=== PATIENT | male | born 1980 | race Caucasian/White ===

== ENCOUNTER 2022-07-25 06:39 | Day surgery (SDC) | payer BC, SELFPAY ==
[2022-07-25] VITALS (13 sets, daily range): BP systolic 118–131; BP diastolic 68–87; PULSE 54–95; RESP 16; TEMP 36.3–36.6; O2SAT 91–97; BMI 31.4
[2022-07-25] MEDS: SODIUM CHLORIDE 0.9 % (FLUSH) 10 ML SYRINGE IVF (07:09)
[2022-07-25] MEDS: LACTATED RINGERS 1000 ML 1,000 ML 100 ML IV ×2 (07:09→07:13)
[2022-07-25] MEDS: CEFAZOLIN 2 GM in 0.9 % SODIUM CHLORIDE Mini-bag 100 ML IVPB (07:56)
[2022-07-25] MEDS: BUPIVACAINE 0.25% 30 ML INJECTION (08:11)
[2022-07-25] MEDS: BACITRACIN OINTMENT BULK TUBE 1 APPLIC TOPICAL (09:17)
--- NOTE | 2022-07-25 09:30 | P.GSOP_ITS ---
Operative Note Date of procedure: 07/25/22 Type of Procedure: 1. Open umbilical hernia repair with mesh. Procedure Description: After discussing the risks and benefits of the procedure, the patient signed informed consent.? The operative site was marked and the patient was brought to the operating room and placed on the operating table in supine position.? Care was taken to pad the patient's pressure points.?? The patient was then intubated by anesthesia.?? The operative site was then prepped and draped in the usual sterile fashion.? A time-out was then performed. Local anesthetic was injected at the surgical site. A curvilinear skin incision was made with a scalpel just below umbilicus. Subcutaneous tissue was dissected with electrocautery down to the hernia sac and anterior fascia. The hernia sac was dissected off of the anterior fascia and subcutaneous fat around the fascial defect was dissected away from the fascial defect with cautery. I attempted to reduce the incarcerated hernia but it was only partially reducible. The hernia sac was then entered with cautery. Omentum was noted to be still incarcerated hernia sac. I was then able to reduce the omentum through the hernia sac. The hernia sac was then excised with cautery. The hernia sac was closed with a running 2-0 Vicryl suture. I then developed preperitoneal space for mesh insertion. This was done with cautery. The fascial defect was approximately 2.2 cm. The surrounding fascia was somewhat weak. An [address] mesh patch was then inserted into preperitoneal space and secured to the fascia using 0-0 Neurolon interrupted stitches. I examined my closure and no defects were identified between the fascia and the mesh. Fascia was re-approximated over the mesh with a running 2-0 Vicryl stitch. The wound was irrigated with saline. Add itional local anesthetic was injected into subcutaneous tissues. The very bottom of the umbilicus had bleeding and possibly had an opening from dissecting the deep umbilicus from the fascia. This opening was oversewn with 3-0 Vicryl suture. An umbilicus was tacked down with interrupted 3-0 Vicryl stitches. Subdermal layer was closed with interrupted sutures using 3-0 Vicryl. Skin was closed with 4-0 Monocryl using subcuticular stitch. Steri strips were applied over the incision. The skin over the umbilicus was macerated. Bacitracin was applied over macerated portions of the skin. I then placed a folded sterile 4x4 gauze into the umbilicus and over the incision and covered it with tape. All counts were correct at the end of the case. Patient tolerated the procedure well and was transferred to PACU without any complications. ? Findings: 2.2 cm fascial defect repaired with mesh. Anesthesia: GETA Surgeon: Jaye Gallardo MD Estimated blood loss (mL): 5 Condition: stable Disposition: PACU
--- NOTE | 2022-07-25 09:36 | W.ANESCHARGE ---
Anesthesia Charges Start Date/Time Anesthesia Start Date: 07/25/22 Anesthesia Start Time: 07:41 Stop Date/Time Anesthesia Stop Date: 07/25/22 Anesthesia Stop Time: 09:34 Summary Emergency: No
--- NOTE | 2022-07-25 10:42 | W.ANESCHARGE ---
Anesthesia Charges Start Date/Time Anesthesia Start Date: 07/25/22 Anesthesia Start Time: 07:41 Stop Date/Time Anesthesia Stop Date: 07/25/22 Anesthesia Stop Time: 09:34 Summary Emergency: No
== END 2022-07-25 11:23 | disposition home or self-care (01) ==
PROVIDERS: PCP Family Medicine; Visit Provider Surgery
PROC: (CPT 49587; principal; 2022-07-25 07:45)
DX: K42.0 Umbilical hernia with obstruction, without gangrene (principal)
CPT/HCPCS: 49587; 00830; A4467; C1781; J0330; J0690; J1100; J1885; J2405; J2704; J2710; J3010; J3490; J7120

== ENCOUNTER 2023-02-10 12:39 | Emergency (ER) | payer OTHER, BC, SELFPAY ==
--- NOTE | 2023-02-10 12:47 | CRLHL7_ITS ---
For Patients: As a result of the Cures Act, medical imaging exams and procedure reports are released immediately into your electronic medical record. You may view this report before your referring provider. If you have questions, please contact your health care provider. Indication: Trauma. Technique: Right foot, 3 views. Comparison: None. Findings/Impression: Bones: Acute comminuted fracture of the 5th toe distal phalanx. Possible additional nondisplaced fracture of the 5th toe middle phalanx. Joint spaces: Unremarkable. Soft tissues: Associated soft tissue edema. Dictated by Duy Wilson MD @ 02/10/2023 1:58:14 PM (Electronically Signed)
[2023-02-10 12:56] VITALS: BP 145/83; PULSE 82; RESP 18; TEMP 36.8; O2SAT 98; BMI 29.8
--- NOTE | 2023-02-10 14:24 | ED_ITS ---
HPI - General Adult General Time Seen by Provider: 14:24 Date Seen: 02/10/23 Chief complaint: Extremity Pain/Injury, Lower Stated complaint: Crushed R foot Time Seen by Provider: 02/10/23 14:05 Source: patient, RN notes reviewed and old records reviewed Mode of arrival: ambulatory Limitations: no limitations History of Present Illness HPI narrative: 43-year-old male who comes in today with a crush injury of the right small toe after a ladder retracted on it. Thinks his tetanus is up-to-date. Related Data Home Medications Medication Instructions Recorded Confirmed lisinopril 20 mg tablet 20 mg PO DAILY 07/20/22 07/25/22 Previous Rx's Medication Instructions Recorded cephalexin 500 mg capsule 500 mg PO BID #14 caps 07/25/22 hydrocodone 5 mg-acetaminophen 325 1 tab PO Q6H PRN pain #25 tabs 07/25/22 mg tablet cephalexin 500 mg capsule 500 mg PO TID #15 caps 02/10/23 hydrocodone 5 mg-acetaminophen 325 1 tab PO Q4-6H PRN pain #10 tabs 02/10/23 mg tablet Allergies Allergy/AdvReac Type Severity Reaction Status Date / Time No Known Drug Allergies Allergy Verified 07/25/22 06:54 PFSH PENDING SALE TO [facility] Medical History (Updated 02/10/23 @ 14:58 by Lee Roberts MD) Primary hypertension ?I10 - Essential (primary) hypertension (ICD-10) Acute pancreatitis ?K85.90 - Acute pancreatitis without necrosis or infection, unspecified (ICD- 10) Acute and chronic cholecystitis ?K81.2 - Acute cholecystitis with chronic cholecystitis (ICD-10) Surgical History (Updated 07/20/22 @ 14:14 by Fransico Gauthier RN) Status post open reduction with internal fixation of fracture ?Z98.890 - Other specified postprocedural states (ICD-10) ?Z87.81 - Personal history of (healed) traumatic fracture (ICD-10) Hx laparoscopic cholecystectomy ?Z90.49 - Acquired absence of other specified parts of digestive tract (ICD- 10) Social History Smoking Status: Current every day smoker What tobacco products do you use: cigarettes Do you use any of these nicotine containing products: None How often do you have a drink containing alcohol: 2-3 times a week Alcohol type: beer and hard liquor How many standard drinks containing alcohol do you have on a typical day: 3 or 4 How often do you have six or more drinks on one occasion: Weekly AUDIT-C Alcohol total score: 7 Non-prescribed substance use: denies use Caffeine: Yes (pop) Exam Narrative: Exam Narrative: General: well nourished , NAD Head: Atraumatic and normocephalic ENT: External ears and external nose are normal Eyes: Conjunctiva clear, pupils are equal reactive, external ocular motions are intact Neck: Full spontaneous range of motion of the neck Lungs: No respiratory distress Musculoskeletal: Longitudinal laceration of the small toe on the right measuring 16 mm with a 2nd smaller laceration medially measuring about 4 mm. Patient does not have a toenail on the right little toe Neurologic: No gross focal neurologic deficits Skin: No rashes Psych: Mood and affect are appropriate Const: Vital Signs, click to edit/add: Vital Signs - 24 hr 02/10/23 12:56 02/10/23 14:28 Temperature 98.3 F Pulse Rate [Right Pulse Oximeter] 82 80 Respiratory Rate 18 Blood Pressure [Ri ght Upper Arm] 145/83 H 151/94 H Pulse Oximetry 98 99 Oxygen Delivery Me thod Room Air Room Air Course Course Hospital Course: Patient presents with right little toe injury after dropping ladder on it. X- ray independently interpreted by me ordered from triage demonstrates fractures of the middle and distal phalanx. On exam there is a longitudinal laceration on the tip of the toe which will require sutures. Risks and benefits discussed with the patient, lidocaine 1% was injected as a digital block, additional lidocaine 1% injected into the wound after about 10 minutes. Wound was cleansed with wound cleanser and explored, no foreign body found. Small area of devitalized tissue was removed with scissors and the laceration was closed with four -0 Ethilon simple interrupted sutures. Patient tolerated this well and dressing was placed. As this is an open fracture, patient will be started on Keflex and follow-up with podiatry. Vital Signs Vital signs: Initial Vital Signs Temperature 98.3 F 02/10/23 12:56 Temperature Source Temporal Artery Scan 02/10/23 12:56 Pulse Rate 82 02/10/23 12:56 Respiratory Rate 18 02/10/23 12:56 Blood Pressure 145/83 H 02/10/23 12:56 Blood Pressure Mean 103 02/10/23 12:56 Blood Pressure Position Sitting 02/10/23 12:56 Pulse Oximetry 98 02/10/23 12:56 Oxygen Delivery Method Room Air 02/10/23 12:56 Vital Signs Temperature 98.3 F 02/10/23 12:56 Pulse Rate 82 02/10/23 12:56 Respiratory Rate 18 02/10/23 12:56 Blood Pressure 145/83 H 02/10/23 12:56 Pulse Oximetry 98 02/10/23 12:56 Oxygen Delivery Method Room Air 02/10/23 12:56 Temperature 98.3 F 02/10/23 12:56 Pulse Rate 80 02/10/23 14:28 Respiratory Rate 18 02/10/23 12:56 Blood Pressure 151/94 H 02/10/23 14:28 Pulse Oximetry 99 02/10/23 14:28 Oxygen Delivery Method Room Air 02/10/23 14:28 Discharge Plan Discharge Clinical Impression: Laceration of toe, Open fracture of fifth toe of right foot, Open fracture dislocation of toe of right foot Patient Disposition: Home, Self-Care Condition: Stable Instructions: Laceration (DC), Toe Fracture (ED) Additional Instructions: Wear walking boot, walk as little as possible the next couple of days Take antibiotics as prescribed Elevate, Tylenol and ibuprofen for pain Follow-up with podiatry next week Activity Level: No Restrictions Discharge Diet: Regular Prescriptions: New cephalexin 500 mg capsule 500 mg PO TID Qty: 15 0RF hydrocodone-acetaminophen 5-325 mg tablet 1 tab PO Q4-6H PRN (Reason: pain) Qty: 10 0RF No Action lisinopril 20 mg tablet 20 mg PO DAILY hydrocodone-acetaminophen 5-325 mg tablet 1 tab PO Q6H PRN (Reason: pain) Qty: 25 0RF cephalexin 500 mg capsule 500 mg PO BID Qty: 14 0RF Follow Up/Referrals: Momo Yost MD [Primary Care Provider] - Stand Alone Forms: My[facility] Info Instructions
[2023-02-10 14:28] VITALS: BP 151/94; PULSE 80; O2SAT 99
--- NOTE | 2023-02-10 15:00 | ED.NURSE ---
Pt wound on R pinky toe bandaged. Bacitracin applied to lac, then bandaged with tegaderm and wrapped with gauze roll. Pt provided with post-op shoe.
== END 2023-02-10 15:14 | disposition home or self-care (01) ==
PROVIDERS: Emergency Provider Family Medicine; PCP Family Medicine
DX: S92.501B Displaced unspecified fracture of right lesser toe(s), initial encounter for open fracture (principal); W23.0XXA Caught, crushed, jammed, or pinched between moving objects, initial encounter
CPT/HCPCS: 12001; 73630; 99283; 99284